=== PATIENT | male | born 1980 | race Caucasian/White ===

== ENCOUNTER 2020-08-09 07:56 | Day surgery (SDC) | payer OTHER ==
[2020-08-08 13:41] VITALS: BMI 26.6
[2020-08-09] MEDS ORDERED: PROPOFOL 20 ML ONE ×3 (08:27)
[2020-08-09] MEDS ORDERED: LIDOCAINE HCL/PF 2% SDV 5ML VIAL ONE (08:27)
[2020-08-09 09:34] VITALS: TEMP 97.8
[2020-08-09 09:45] VITALS: BP 106/64; PULSE 71
== END 2020-08-09 09:55 | disposition home or self-care (01) ==
LOC: FASU-ENDO 07:56
PROVIDERS: ATTEND Internal Medicine Gastroenterology
PROC: 0DJD8ZZ Inspection of Lower Intestinal Tract, Via Natural or Artificial Opening Endoscopic (ICD-10-PCS; principal; 2020-08-09 08:57)
DX: R10.32 Left lower quadrant pain (principal)